=== PATIENT | female | born 1960 | race Caucasian/White ===

== ENCOUNTER 2018-02-21 09:21 | Inpatient (IN) | payer BC ==
[2018-02-21] MEDS ORDERED: METOPROLOL TAR 50 MG TAB ONE ×2 (09:56→11:23)
[2018-02-21] MEDS ORDERED: ASPIRIN 81 MG CHEWABLE TABLET ONE (09:56)
[2018-02-21] MEDS ORDERED: METOPROLOL TARTRATE 5 MG/5 ML INJ IV ONE (09:56)
[2018-02-21 10:14] LABS: Absolute Lymphocytes (CBC) 3.1 K/uL (0.7-4.9); Absolute Monocytes 0.7 K/uL (0.1-1.3); Basophils % 0.7 % (0-1.3); Eosinophils % 1.5 % (0-4.4); Hematocrit 40.9 % (36.0-45.0); Lymphocytes % 39.1 % (15.3-44.8); MCH 23.8 pg (27.0-35.0); MCV 75.6 fL (80-100); MPV 9.5 fL (7.6-11.3); Monocytes % 8.3 % (3.3-12.3); Protime INR 0.97; RBC Red Blood Cell Count 5.42 M/uL (3.86-4.86)
[2018-02-21 10:37] LABS: Potassium 3.9 mmol/L (3.5-5.1); Thyroid Stimulating Hormone 0.373 uIU/mL (0.360-3.740); Troponin (Emerg Dept Use Only) 0.06 ng/mL (0.0-0.045)
--- NOTE | 2018-02-21 11:17 | RAD REPORT ---
EXAM DESCRIPTION: RAD - Chest Single View - 02/21/2018 10:35 am CLINICAL HISTORY: PALPITATIONS Chest pain. COMPARISON: No comparisons FINDINGS: Portable technique limits examination quality. The lungs are grossly clear. The heart is normal in size. No displaced fractures. IMPRESSION: No acute intrathoracic process suspected.
[2018-02-21] MEDS ORDERED: ENOXAPARIN 100 MG/ML SYR SQ ONE (11:19)
--- NOTE | 2018-02-21 11:27 | ER ---
Nurse's Notes [facility] Name: Ana Farmer Age: 57 yrs Sex: Female : 1960 Arrival Date: 02/21/2018 Time: 09:24 Bed 14 Private MD: Jazmin Holland K Diagnosis: Unspecified atrial fibrillation Presentation: 02/21 09:33 Presenting complaint: Patient states: palpitations, feeling dizzy, lightheaded ch intermittently, started yesterday morning when i woke up. Transition of care: patient was not received from another setting of care. Onset of symptoms was February 20, 2018 at 08:00. 09:33 Method Of Arrival: Wheelchair 09:49 Risk Assessment: Do you want to hurt yourself or someone else? Patient reports no ch desire to harm self or others. Initial Sepsis Screen: Does the patient meet any 2 criteria? No. Patient's initial sepsis screen is negative. Does the patient have a suspected source of infection? No. Patient's initial sepsis screen is negative. Care prior to arrival: None. 09:49 Acuity: ELENITA 2 Triage Assessment: 09:51 General: Appears in no apparent distress. uncomfortable, Behavior is calm, cooperative, ch appropriate for age. Pain: Denies pain. Neuro: No deficits noted. Cardiovascular: Heart tones S1 Capillary refill < 3 seconds in bilateral fingers toes Clubbing of nail beds is absent Patient's skin is warm and dry. Pulses are all present. Edema is absent. Rhythm is atrial fibrillation with rapid ventricular response Chest pain is denied. Respiratory: Airway is patent Respiratory effort is even, unlabored, Breath sounds are clear bilaterally. Historical: - Allergies: 09:51 No Known Allergies; ch - Home Meds: 09:51 levothyroxine 50 mcg tab 1 tab once daily [Active]; omeprazole 40 mg Oral cpDR 1 cap ch once daily [Active]; - PMHx: 09:51 Hypothyroidism; GERD; svt- in the 1989; ch - PSHx: 09:51 None; ch - Immunization history:: Adult Immunizations up to date, Adult Immunizations. - Social history:: Smoking status: Patient/guardian denies using tobacco, Patient/guardian denies using alcohol, street drugs. - Family history:: not pertinent. - Ebola Screening: : Patient negative for fever greater than or equal to 101.5 degrees Fahrenheit, and additional compatible Ebola Virus Disease symptoms Patient denies exposure to infectious person Patient denies travel to an Ebola-affected area in the 21 days before illness onset No symptoms or risks identified at this time. - Hospitalizations: : No recent hospitalization is reported. Screenin:13 Abuse screen: Denies threats or abuse. Denies injuries from another. Nutritional ch screening: No deficits noted. Tuberculosis screening: No symptoms or risk factors identified. Fall Risk None identified. Assessment: 10:50 Reassessment: Patient appears in no apparent distress at this time. Patient and/or ch family updated on plan of care and expected duration. Pain level reassessed. Patient is alert, oriented x 3, equal unlabored respirations, skin warm/dry/pink. Patient denies pain at this time. Patient states feeling better. 11:25 Reassessment: Patient appears in no apparent distress at this time. No changes from previously documented assessment. Patient and/or family updated on plan of care and expected duration. Pain level reassessed. Patient is alert, oriented x 3, equal unlabored respirations, skin warm/dry/pink. pt heart rate between 90's and 130's. denies feeling light headed. erp notified. no new orders. awaiting to see po metoprolol effectivness. 12:25 Reassessment: Patient appears in no apparent distress at this time. Patient and/or ch family updated on plan of care and expected duration. Pain level reassessed. Patient is alert, oriented x 3, equal unlabored respirations, skin warm/dry/pink. pt denies dizzyness or lighheadedness. states she is feeling better. 13:54 Reassessment: Patient appears in no apparent distress at this time. Patient and/or ch family updated on plan of care and expected duration. Pain level reassessed. Patient is alert, oriented x 3, equal unlabored respirations, skin warm/dry/pink. Patient denies pain at this time. Patient states feeling better. Patient states symptoms have improved. 14:07 Reassessment: Patient appears in no apparent distress at this time. Patient and/or ch family updated on plan of care and expected duration. Pain level reassessed. Patient is alert, oriented x 3, equal unlabored respirations, skin warm/dry/pink. I attempt to call report for the second time, will try again in 15 min. Patient denies pain at this time. Vital Signs: 09:40 BP 109 / 75; Pulse 126; Resp 18; Temp 97.9; Pulse Ox 99% on R/A; Weight 99.79 kg; ch Height 5 ft. 8 in. (172.72 cm); Pain 0/10; 09:54 BP 121 / 85; Pulse 108; Resp 14; Pulse Ox 99% on R/A; ch 09:59 BP 123 / 59; Pulse 85; Resp 14; Temp 97.8; Pulse Ox 99% on R/A; ch 10:04 BP 105 / 68; Pulse 94; Resp 16; Pulse Ox 99% on R/A; Pain 0/10; ch 10:50 BP 114 / 73; Pulse 125; Resp 16; Pulse Ox 98% on R/A; Pain 0/10; ch 11:25 BP 112 / 82; Pulse 125; Resp 12; Pulse Ox 98% on R/A; Pain 0/10; ch 12:40 BP 100 / 56; Pulse 102; Pulse Ox 99% on R/A; ch 13:54 BP 92 / 71; Pulse 92; Resp 14; Temp 98.5; Pulse Ox 99% on R/A; Pain 0/10; ch 14:17 BP 107 / 77; Pulse 99; Resp 16; Temp 98.4; Pulse Ox 99% on R/A; Pain 0/10; ch 09:40 Body Mass Index 33.45 (99.79 kg, 172.72 cm) ch 13:54 pt is still A fib, from 80's to 110's ch ED Course: 09:24 Patient arrived in ED. mr 09:25 Jazmin Holland MD is Private Physician. mr 09:32 Scarlett Maier, NORMA is Primary Nurse. 09:36 Darell Thomas MD is Attending Physician. rn 09:40 Arm band placed on left wrist. Patient placed in an exam room, on a stretcher, on school lunch monitor, on pulse oximetry. EKG completed in triage. Results shown to MD. 09:45 Patient has correct armband on for positive identification. Placed in gown. Bed in low position. Call light in reach. Side rails up X 1. Adult w/ patient. gambling monitor on. Pulse ox on. NIBP on. 09:45 Warm blanket given. ch 09:49 EKG done, by gastrointestinal technician. reviewed by Darell Thomas MD. at1 09:50 Triage completed. ch 09:50 Inserted saline lock: 18 gauge in left antecubital area, using aseptic technique. Blood ch collected. 10:31 X-ray completed. Portable x-ray completed in exam room. Patient tolerated procedure jb2 well. 10:37 XRAY Chest (1 view) In Process Unspecified. EDMS 10:45 EKG done, by gastrointestinal technician. reviewed by Darell Thomas MD Repeat EKG. at1 11:25 Shanel Dickens MD is Hospitalizing Provider. rn 14:01 Urine collected: clean catch specimen, clear. [facility] 14:18 No provider procedures requiring assistance completed. Patient admitted, IV remains in place. Administered Medications: 09:50 Drug: Metoprolol 5 mg Route: IVP; Site: left antecubital; ch 09:53 Drug: Aspirin Chewable Tablet 324 mg Route: PO; ch 10:51 Follow up: Response: No adverse reaction ch 09:55 Drug: Metoprolol 5 mg Route: IVP; Site: left antecubital; ch 10:05 Drug: Metoprolol 5 mg Route: IVP; Site: left antecubital; ch 10:51 Follow up: Response: No adverse reaction; Other; cardiac rate is reduced some, pt is ch still a fib 10:16 Drug: Metoprolol TARTRATE (Lopressor) 50 mg Route: PO; ch 10:51 Follow up: Response: No adverse reaction ch 11:10 Drug: Lovenox 100 mg Route: Sub-Q; Site: right upper abdomen; ch 11:19 Follow up: Response: No adverse reaction; Marked relief of symptoms ch 11:19 Drug: Metoprolol TARTRATE (Lopressor) 50 mg Route: PO; ch 14:15 Follow up: Response: No adverse reaction; Marked relief of symptoms Outcome: 11:26 Decision to Hospitalize by Provider. rn 14:18 Admitted to Tele accompanied by [facility], via wheelchair, room 211, Report called to Ele 14:18 Condition: stable 14:18 Instructed on the need for admit. 14:25 Patient left the ED. Signatures: Dispatcher [employer] Scarlett Wong RN RN ch Rivera, Mary mr Buechter, Jesse jb2 Darell Thomas MD MD rn Faviola Kearney, customer experience retail clerk [facility]1 Jazmin Velasquez [facility]
--- NOTE | 2018-02-21 11:27 | EDPHYS ---
Physician Documentation [facility] Name: Ana Farmer Age: 57 yrs Sex: Female : 1960 Arrival Date: 02/21/2018 Time: 09:24 Bed 14 Private MD: Jazmin Holland K ED Physician Darell Thomas HPI: 02/21 09:45 This 57 yrs old Female presents to ER via Unassigned with complaints of rn Palpitations. 09:45 The patient presents with a history of heart racing. Context: The symptoms occur at rn rest. Onset: The symptoms/episode began/occurred yesterday. Duration: The patient or guardian reports multiple episodes. Modifying factors: The symptoms are aggravated by nothing. The symptoms are alleviated by nothing. Severity of symptoms: At their worst the symptoms were mild in the emergency department the symptoms are unchanged. The patient has not experienced similar symptoms in the past. Reports palpitations, began yesterday AM, seen today by PCP, told to come here for evaluation, has had SVT in past, only takes thyroid meds, has decreased synthroid recently, no drug use. . Historical: - Allergies: 09:51 No Known Allergies; ch - Home Meds: 09:51 levothyroxine 50 mcg tab 1 tab once daily [Active]; omeprazole 40 mg Oral cpDR 1 cap ch once daily [Active]; - PMHx: 09:51 Hypothyroidism; GERD; svt- in the 1989; ch - PSHx: 09:51 None; ch - Immunization history:: Adult Immunizations up to date, Adult Immunizations. - Social history:: Smoking status: Patient/guardian denies using tobacco, Patient/guardian denies using alcohol, street drugs. - Family history:: not pertinent. - Ebola Screening: : Patient negative for fever greater than or equal to 101.5 degrees Fahrenheit, and additional compatible Ebola Virus Disease symptoms Patient denies exposure to infectious person Patient denies travel to an Ebola-affected area in the 21 days before illness onset No symptoms or risks identified at this time. - Hospitalizations: : No recent hospitalization is reported. ROS: 09:45 Constitutional: Negative for fever, chills, and weight loss, Eyes: Negative for injury, rn pain, redness, and discharge, Neck: Negative for injury, pain, and swelling, Cardiovascular: Negative for chest pain, and edema, Respiratory: Negative for shortness of breath, cough, wheezing, and pleuritic chest pain, Abdomen/GI: Negative for abdominal pain, nausea, vomiting, diarrhea, and constipation, MS/Extremity: Negative for injury and deformity, Skin: Negative for injury, rash, and discoloration, Neuro: Negative for headache, weakness, numbness, tingling, and seizure. Exam: 09:45 Constitutional: This is a well developed, well nourished patient who is awake, alert, rn and in no acute distress. Head/Face: Normocephalic, atraumatic. ENT: MMM Cardiovascular: tachycardic, irregular, no murmur Respiratory: clear to auscultation bilaterally Skin: Warm, dry, no evidence of cellulitis. MS/ Extremity: Pulses equal, no cyanosis. Equal circumference. Neuro: Awake and alert, GCS 15, oriented to person, place, time, and situation. Cranial nerves II-XII grossly intact. Motor strength 5/5 in all extremities. Sensory grossly intact. Cerebellar exam normal. 10:05 ECG was reviewed by the Attending Physician. rn Vital Signs: 09:40 BP 109 / 75; Pulse 126; Resp 18; Temp 97.9; Pulse Ox 99% on R/A; Weight 99.79 kg; ch Height 5 ft. 8 in. (172.72 cm); Pain 0/10; 09:54 BP 121 / 85; Pulse 108; Resp 14; Pulse Ox 99% on R/A; ch 09:59 BP 123 / 59; Pulse 85; Resp 14; Temp 97.8; Pulse Ox 99% on R/A; ch 10:04 BP 105 / 68; Pulse 94; Resp 16; Pulse Ox 99% on R/A; Pain 0/10; ch 10:50 BP 114 / 73; Pulse 125; Resp 16; Pulse Ox 98% on R/A; Pain 0/10; ch 11:25 BP 112 / 82; Pulse 125; Resp 12; Pulse Ox 98% on R/A; Pain 0/10; ch 12:40 BP 100 / 56; Pulse 102; Pulse Ox 99% on R/A; ch 13:54 BP 92 / 71; Pulse 92; Resp 14; Temp 98.5; Pulse Ox 99% on R/A; Pain 0/10; ch 14:17 BP 107 / 77; Pulse 99; Resp 16; Temp 98.4; Pulse Ox 99% on R/A; Pain 0/10; ch 09:40 Body Mass Index 33.45 (99.79 kg, 172.72 cm) ch 13:54 pt is still A fib, from 80's to 110's ch MDM: 09:36 Patient medically screened. rn 11:24 Data reviewed: vital signs, nurses notes, lab test result(s), EKG, radiologic studies, rn plain films, and as a result, I will admit patient. Counseling: I had a detailed discussion with the patient and/or guardian regarding: the historical points, exam findings, and any diagnostic results supporting the discharge/admit diagnosis, lab results, radiology results, the need for further work-up and treatment in the hospital. Response to treatment: the patient's symptoms have mildly improved after treatment, and as a result, I will admit patient. Admission orders: after a detailed discussion of the patient's condition and case, the admit orders are written by me. ED course: Pt with new onset Afib with RVR, elevated trop and BNP, otherwise stable, admitted to Dr. Dickens.. 02/21 09:42 Order name: Basic Metabolic Panel; Complete Time: 10:37 rn 02/21 09:42 Order name: CBC with Diff; Complete Time: 10:37 rn 02/21 09:42 Order name: NT PRO-BNP; Complete Time: 10:37 rn 02/21 09:42 Order name: PT-INR; Complete Time: 10:37 rn 02/21 09:42 Order name: Troponin (emerg Dept Use Only); Complete Time: 10:37 rn 02/21 09:42 Order name: TSH; Complete Time: 10:37 rn 02/21 09:42 Order name: XRAY Chest (1 view); Complete Time: 11:19 rn 02/21 09:42 Order name: T4 Free; Complete Time: 10:37 rn 02/21 11:25 Order name: Echo with Doppler EDMS 02/21 14:15 Order name: Urine Dipstick--Ancillary (enter results) eb 02/21 09:42 Order name: EKG; Complete Time: 09:43 rn 02/21 09:42 Order name: Cardiac monitoring; Complete Time: 10:52 rn 02/21 09:42 Order name: EKG - Nurse/Tech; Complete Time: 10:52 rn 02/21 09:42 Order name: IV Saline Lock; Complete Time: 10:52 rn 02/21 09:42 Order name: Labs collected and sent; Complete Time: 10:52 rn 02/21 09:42 Order name: O2 Per Protocol; Complete Time: 10:52 rn 02/21 09:42 Order name: O2 Sat Monitoring; Complete Time: 10:52 rn EC:05 Rate is 132 beats/min. Rhythm is irregularly irregular. QRS [place] is Normal. QRS rn interval is normal. QT interval is normal. No Q waves. T waves are Normal. No ST changes noted. Clinical impression: Atrial Fibrillation. Interpreted by me. Administered Medications: 09:50 Drug: Metoprolol 5 mg Route: IVP; Site: left antecubital; ch 09:53 Drug: Aspirin Chewable Tablet 324 mg Route: PO; ch 10:51 Follow up: Response: No adverse reaction ch 09:55 Drug: Metoprolol 5 mg Route: IVP; Site: left antecubital; ch 10:05 Drug: Metoprolol 5 mg Route: IVP; Site: left antecubital; ch 10:51 Follow up: Response: No adverse reaction; Other; cardiac rate is reduced some, pt is ch still a fib 10:16 Drug: Metoprolol TARTRATE (Lopressor) 50 mg Route: PO; ch 10:51 Follow up: Response: No adverse reaction ch 11:10 Drug: Lovenox 100 mg Route: Sub-Q; Site: right upper abdomen; ch 11:19 Follow up: Response: No adverse reaction; Marked relief of symptoms ch 11:19 Drug: Metoprolol TARTRATE (Lopressor) 50 mg Route: PO; ch 14:15 Follow up: Response: No adverse reaction; Marked relief of symptoms ch Disposition: 02/21/18 11:26 Hospitalization ordered by Shanel Dickens for Inpatient Admission. Preliminary diagnosis is Unspecified atrial fibrillation. - Bed requested for Telemetry/MedSurg (Inpatient). - Status is Inpatient Admission. ch - Condition is Stable. - Problem is new. - Symptoms have improved. UTI on Admission? No Signatures: Dispatcher [employer] EDScarlett Garcia RN RN ch Nieto, Roman, MD MD rn Botello, Elizabeth eb Corrections: (The following items were deleted from the chart) 12:23 11:26 Hospitalization Ordered by Shanel Dickens MD for Inpatient Admission. Preliminary eb diagnosis is Unspecified atrial fibrillation. Bed requested for Telemetry/MedSurg (Inpatient). Status is Inpatient Admission. Condition is Stable. Problem is new. Symptoms have improved. UTI on Admission? No. rn 14:25 12:23 02/21/2018 11:26 Hospitalization Ordered by Shanel Dickens MD for Inpatient ch Admission. Preliminary diagnosis is Unspecified atrial fibrillation. Bed requested for Telemetry/MedSurg (Inpatient). Status is Inpatient Admission. Condition is Stable. Problem is new. Symptoms have improved. UTI on Admission? No. eb
--- NOTE | 2018-02-21 12:34 | EKG ---
Test Date: 2018-02-21 Test Time: 09:42:12 Switch Maker: CHRISTOFER MEASUREMENT RESULTS: Intervals: Rate: 132 MO: QRSD: 88 QT: 298 QTc: 441 [place]: P: MO: QRS: 38 T: -25 INTERPRETIVE STATEMENTS: Atrial fibrillation with rapid ventricular response with premature ventricular or aberrantly conducted complexes ST & T wave abnormality, consider inferior ischemia or digitalis effect Abnormal ECG Compared to ECG 05/03/2007 23:23:56 Ventricular premature complex(es) now present ST (T wave) deviation now present Possible ischemia now present Sinus rhythm no longer present Left ventricular hypertrophy no longer present Electronically Signed On 02-21-18 12:32:41 LINER HELPER by Rell Huerta
--- NOTE | 2018-02-21 15:07 | P.HP ---
Certification for Inpatient Patient admitted to: Inpatient With expected LOS: >2 Midnights Patient will require the following post-hospital care: None Practitioner: I am a practitioner with admitting privileges, knowledge of patient current condition, hospital course, and medical plan of care. Services: Services provided to patient in accordance with Admission requirements found in Title 42 Section 412.3 of the Code of Federal Regulations Patient History Date of Service: 02/21/18 Primary Care Provider: Dr. Holland Reason for admission: Atrial fibrillation History of Present Illness: This is a 57-year-old female with significant past medical history of hyperthyroidism who presented to the ED complaining of having some irregular heart rate with started yesterday patient started having palpitations along with it and the she decided to go to her primary care doctors. This morning at her primary care doctor's office. She had an EKG done which was consistent with atrophic dash with RVR is thus her primary care doctor drove her to the hospital for further care. Patient stated that she just generally was not feeling well and decided to go to her PCP. Recently patient has seen her PCP where her thyroid medication dose was adjusted to a lower dose from her previous dose that she was taking. No other complaints to offer at this time. Denies having any chest pain shortness of breath nausea vomiting headaches or any other associated symptoms. In the ER patient was found to have atrial fibrillation and thus was admitted for new onset AFib with RVR Home Medications: Levothyroxine [Synthroid] 125 mg PO [id number] 02/21/18 Omeprazole [Prilosec] 40 mg PO DAILY 02/21/18 - Past Medical/Surgical History Has patient received pneumonia vaccine in the past: No -: Hypothyroidism Past Surgical History: Reviewed- Non-Contributory - Family History Family History: Reviewed- Non-Contributory - Social History Smoking Status: Never smoker Smoking therapy provided: No Patient receptive to therapy: No Alcohol use: No CD- Drugs: No Caffeine use: No Place of Residence: Home Review of Systems 10-point ROS is otherwise unremarkable Physical Examination - Vital Signs Temperature: 98.4 F Blood Pressure: 107/77 Pulse: 99 Respirations: 16 - Physical Exam General: Alert, In no apparent distress HEENT: Atraumatic, PERRLA, Mucous membr. moist/pink, EOMI, Sclerae nonicteric Neck: Supple, 2+ carotid pulse no bruit, No LAD, Without JVD or thyroid abnormality Respiratory: Clear to auscultation bilaterally, Normal air movement Cardiovascular: Normal S1 S2, Irregular heart rate/rhythm Gastrointestinal: Normal bowel sounds, No tenderness Musculoskeletal: No tenderness Integumentary: No rashes Neurological: Normal gait, Normal speech, Normal strength at 5/5 x4 extr, Normal tone, Normal affect Lymphatics: No axilla or inguinal lymphadenopathy - Studies Laboratory Data (last 24 hrs) 02/21/18 09:50: PT 11.5, INR 0.97 02/21/18 09:50: WBC 7.9, Hgb 12.9, Hct 40.9, Plt Count 366 02/21/18 09:50: Sodium 144, Potassium 3.9, BUN 23 H, Creatinine 1.10, Glucose 102 Assessment and Plan - Problems (Diagnosis) (1) Atrial fibrillation with RVR Current Visit: Yes Status: Acute Plan: AFib with RVR with a heart rate of 150s to 140s -currently beta-rosalinda x1 in the ER -Not on any anti coagulation at this time -will get cardiology consulted at this time -will get echocardiogram as well -will do Lovenox b.i.d. along with low-dose beta-rosalinda at this time (2) Hypothyroidism Current Visit: Yes Status: Chronic Plan: Restart home medication and Repeat TSH and T4 Qualifiers: Hypothyroidism type: acquired Qualified Code(s): E03.9 - Hypothyroidism, unspecified Discharge Plan: Home Plan to discharge in: 48 Hours - Advance Directives Does patient have a Living Will: No Does patient have a Durable POA for Healthcare: No - Code Status/Comfort Care Code Status Assessed: Yes Critical Care: No
[2018-02-21] MEDS ORDERED: ACETAMINOPHEN 500 MG TAB PO PRN (15:14)
[2018-02-21] MEDS ORDERED: ONDANSETRON 4 MG/2 ML VIAL IV PRN (15:14)
[2018-02-21] MEDS: NA CHLORIDE 0.9% 1,000 ML IV SCH (15:31)
[2018-02-21 15:37] LABS: Urine Blood NEGATIVE (NEG); Urine Glucose NEGATIVE (NEG); Urine Protein NEGATIVE (NEG)
--- NOTE | 2018-02-21 17:13 | ECHO ---
HEIGHT: 5 ft 7 in WEIGHT: 230 lb 2 oz DATE OF STUDY: 02/21/[address]: Shanel Dickens MD 2-DIMENSIONAL: YES M.MODE: YES DOPPLER: YES COLOR FLOW: YES TDS: PORTABLE: DEFINITY: BUBBLE STUDY: DIAGNOSIS: ATRIAL FIBRILLATION WITH RAPID VENTRICULAR RESPONSE. CARDIAC HISTORY: CATHERIZATION: NO SURGERY: NO PROSTHETIC VALVE: NO PACEMAKER: NO MEASUREMENTS (cm) DIASTOLIC (NORMALS) SYSTOLIC (NORMALS) IVSd 1.0 (0.6-1.2) LA Diam 3.1 (1.9-4.0) LVEF 61% LVIDd 3.2 (3.5-5.7) LVIDs 2.2 (2.0-3.5) %FS 32% LVPWd 1.0 (0.6-1.2) Ao Diam 2.6 (2.0-3.7) 2 DIMENSIONAL ASSESSMENT: RIGHT ATRIUM: NORMAL LEFT ATRIUM: NORMAL RIGHT VENTRICLE: NORMAL LEFT VENTRICLE: NORMAL TRICUSPID VALVE: NORMAL MITRAL VALVE: NORMAL PULMONIC VALVE: NORMAL AORTIC VALVE: NORMAL PERICARDIAL EFFUSION: NONE AORTIC ROOT: NORMAL LEFT VENTRICULAR WALL MOTION: NORMAL DOPPLER/COLOR FLOW: MILD MITRAL REGURGITATION. COMMENTS: NORMAL TWO DIMENSIONAL ECHOCARDIOGRAM. MILD MITRAL REGURGITATION. TECHNOLOGIST: JANETTE TUTTLE
[2018-02-21] MEDS: ENOXAPARIN 100 MG/ML SYR SQ SCH (20:32)
[2018-02-22] MEDS: NA CHLORIDE 0.9% 1,000 ML IV SCH ×2 (01:45→11:47)
[2018-02-22 05:42] LABS: Absolute Lymphocytes (CBC) 3.2 K/uL (0.7-4.9); Absolute Monocytes 0.5 K/uL (0.1-1.3); Absolute Neutrophil 2.7 K/uL (1.8-8.0); Basophils % 1.2 % (0-1.3); Eosinophils % 2.5 % (0-4.4); Hematocrit 37.5 % (36.0-45.0); Lymphocytes % 48.2 % (15.3-44.8); MCH 23.9 pg (27.0-35.0); MCV 75.8 fL (80-100); MPV 9.5 fL (7.6-11.3); Monocytes % 7.7 % (3.3-12.3); RBC Red Blood Cell Count 4.95 M/uL (3.86-4.86)
[2018-02-22] MEDS: LEVOTHYROXINE SOD 0.125 MG TAB PO SCH (05:57)
[2018-02-22] MEDS ORDERED: METOPROLOL TAR 25 MG TAB PO SCH (06:00)
--- NOTE | 2018-02-22 07:06 | EKG ---
Test Date: 2018-02-21 Test Time: 10:44:32 Pegger Dobby Looms: CHRISTOFER MEASUREMENT RESULTS: Intervals: Rate: 80 AR: 152 QRSD: 82 QT: 384 QTc: 442 [place]: P: AR: 152 QRS: 24 T: 13 INTERPRETIVE STATEMENTS: Sinus rhythm with premature supraventricular complexes Otherwise normal ECG Compared to ECG 02/21/2018 09:42:12 Atrial premature complex(es) now present Atrial fibrillation no longer present Ventricular premature complex(es) no longer present ST (T wave) deviation no longer present Possible ischemia no longer present Electronically Signed On 02-22-18 07:06:19 PUBLICATIONS EDITOR by Antwon Fisher
[2018-02-22] MEDS: PANTOPRAZOLE 40MG TABLET PO SCH (07:30)
[2018-02-22 07:43] LABS: Bilirubin Total 0.6 mg/dL (0.2-1.0); Potassium 4.6 mmol/L (3.5-5.1); Protein, Total 6.8 g/dL (6.4-8.2)
[2018-02-22] MEDS ORDERED: HOME MED 1 EA UNK (Omeprazole [Prilosec] 40 MG) PO SCH (09:00)
[2018-02-22] MEDS: ENOXAPARIN 100 MG/ML SYR SQ SCH (09:31)
[2018-02-22] MEDS ORDERED: SOTALOL HCL 80 MG TAB PO ONE (09:52)
--- NOTE | 2018-02-22 13:00 | EKG ---
Test Date: 2018-02-22 Test Time: 07:20:28 Extension Work Instructor: CHRISTOFER MEASUREMENT RESULTS: Intervals: Rate: 114 [place]: QRSD: 82 QT: 356 QTc: 490 [place]: P: [place]: QRS: 51 T: -3 INTERPRETIVE STATEMENTS: Atrial fibrillation with rapid ventricular response Abnormal ECG Compared to ECG 02/22/2018 07:20:04 No significant changes Electronically Signed On 02-22-18 12:59:35 LIFE TESTER OUTBOARD [employer]ORS by Antwon Fisher
--- NOTE | 2018-02-22 13:00 | EKG ---
Test Date: 2018-02-22 Test Time: 07:20:54 Environmental Service Aide: CHRISTOFER MEASUREMENT RESULTS: Intervals: Rate: 105 IN: 216 QRSD: 82 QT: 360 QTc: 475 [place]: P: 234 IN: 216 QRS: 51 T: 19 INTERPRETIVE STATEMENTS: Unusual P axis, possible ectopic atrial tachycardia with premature atrial complexes Abnormal ECG Compared to ECG 02/22/2018 07:20:28 Atrial fibrillation no longer present Electronically Signed On 02-22-18 12:59:32 POWER ELECTRONICS RESEARCH ENGINEER by Antwon Fisher
--- NOTE | 2018-02-22 13:01 | EKG ---
Test Date: 2018-02-22 Test Time: 07:20:04 [employer]: CHRISTOFER MEASUREMENT RESULTS: Intervals: Rate: 104 NC: 208 QRSD: 82 QT: 350 QTc: 460 [place]: P: 208 NC: 208 QRS: 53 T: 26 INTERPRETIVE STATEMENTS: Sinus rhythm with premature atrial complexes Abnormal ECG Compared to ECG 02/21/2018 10:44:32 Sinus rhythm no longer present Electronically Signed On 02-22-18 13:00:10 ORCHID SUPERINTENDENT by Antwon Fisher
--- NOTE | 2018-02-22 13:46 | CON ---
Chief Complaint: Palpitations. Reason For Consult: Atrial fibrillation. History Of Present Illness: Mrs. Farmer is 57. She thinks she has had some palpitations that are v chava brief over the last several years, never sought medical attention. She came to the hospital [facility] use her heart was racing a lot. She was found to be in AFib. She went into sinus rhythm when she vance d a dose of IV metoprolol. She spent most of the night in sinus rhythm, this morning is back in atri al fibrillation. The patient has never had myocardial infarction, stroke, or diabetes. No cardiac s urgeries. No stents or other vascular surgeries. Medications: She takes levothyroxine and omeprazole as her only home medications. Allergies: NO ALLERGIES. Social History: No tobacco use. No alcohol use. No recreational drug use. Physical Examination: VITAL SIGNS: Five feet and 7 inches, 230 pounds. HEENT: Normal. Lungs: Clear. Heart: Irregularly irregular. No significant murmur or gallop. Abdomen: Soft. Extremities: Trace edema. An echocardiogram reveals everything is normal. She was in sinus rhythm during the test. She actual ly had [id number] mitral regurgitation. Impression: The patient has paroxysmal atrial fibrillation. I want to keep her in the hospital to i nitiate therapy with Betapace and initiate therapy with Lovenox. We will see if she is in sinus rhyt tomorrow. If she can tolerate 3 doses of Betapace, she could be allowed to go home tomorrow. LEXI/CRISTO Voice ID: [id number] Report ID: [id number]
--- NOTE | 2018-02-22 15:03 | P.PN ---
Subjective Date of Service: 02/22/18 Primary Care Provider: Dr. Holland Chief Complaint: Atrial fibrillation Subjective: Tolerating diet, Ambulating, Improving, Working w/ PT, Doing well Review of Systems 10-point ROS is otherwise unremarkable Physical Examination - Vital Signs Temperature: 97.5 F Blood Pressure: 121/58 Pulse: 125 Respirations: 18 Pulse Ox (%): 97 - Physical Exam General: Alert, In no apparent distress HEENT: Atraumatic, PERRLA, EOMI Neck: Supple, JVD not distended Respiratory: Clear to auscultation bilaterally, Normal air movement Cardiovascular: Regular rate/rhythm, Normal S1 S2 Gastrointestinal: Normal bowel sounds, No tenderness Musculoskeletal: No tenderness Integumentary: No rashes Neurological: Normal speech, Normal tone, Normal affect Lymphatics: No axilla or inguinal lymphadenopathy - Studies Medications List Reviewed: Yes Assessment And Plan - Current Problems (Diagnosis) (1) Atrial fibrillation with RVR Onset Date: 02/22/18 Current Visit: Yes Status: Acute Plan: AFib with RVR with a heart rate of 150s to 140s -Cardiology consulted. Appreciate reccs -On betapace now and Xarelto for anticoagulation (2) Hypothyroidism Onset Date: 02/22/18 Current Visit: Yes Status: Chronic Plan: Restart home medication and Repeat TSH and T4 Qualifiers: Hypothyroidism type: acquired Qualified Code(s): E03.9 - Hypothyroidism, unspecified Discharge Plan: Home Plan to discharge in: 48 Hours - Code Status/Comfort Care Code Status Assessed: Yes Critical Care: No
[2018-02-22] MEDS: RIVAROXABAN 20 MG TABLET PO SCH (16:35)
[2018-02-22] MEDS: SOTALOL HCL 80 MG TAB PO SCH (17:10)
[2018-02-23] MEDS: SOTALOL HCL 80 MG TAB PO SCH ×2 (05:18→17:33)
[2018-02-23] MEDS: LEVOTHYROXINE SOD 0.125 MG TAB PO SCH (05:18)
[2018-02-23 06:10] LABS: Absolute Lymphocytes (CBC) 2.6 K/uL (0.7-4.9); Absolute Monocytes 0.5 K/uL (0.1-1.3); Absolute Neutrophil 2.7 K/uL (1.8-8.0); Basophils % 1.3 % (0-1.3); Eosinophils % 2.5 % (0-4.4); Hematocrit 37.4 % (36.0-45.0); Lymphocytes % 44.1 % (15.3-44.8); MCH 24.2 pg (27.0-35.0); MCV 75.1 fL (80-100); MPV 9.7 fL (7.6-11.3); Monocytes % 7.6 % (3.3-12.3); RBC Red Blood Cell Count 4.98 M/uL (3.86-4.86)
[2018-02-23 06:29] LABS: Albumin 3.2 g/dL (3.4-5.0); Bilirubin Total 0.7 mg/dL (0.2-1.0); Protein, Total 6.4 g/dL (6.4-8.2)
[2018-02-23] MEDS: PANTOPRAZOLE 40MG TABLET PO SCH (08:33)
--- NOTE | 2018-02-23 11:08 | P.PN ---
Subjective Date of Service: 02/23/18 Primary Care Provider: Dr. Holland Chief Complaint: Atrial fibrillation Subjective: Tolerating diet, Ambulating, Improving, Working w/ PT, Doing well Review of Systems 10-point ROS is otherwise unremarkable Physical Examination - Vital Signs Temperature: 98.6 F Blood Pressure: 122/67 Pulse: 99 Respirations: 18 Pulse Ox (%): 95 - Physical Exam General: Alert, In no apparent distress HEENT: Atraumatic, PERRLA, EOMI Neck: Supple, JVD not distended Respiratory: Clear to auscultation bilaterally, Normal air movement Cardiovascular: Regular rate/rhythm, Normal S1 S2 Gastrointestinal: Normal bowel sounds, No tenderness Musculoskeletal: No tenderness Integumentary: No rashes Neurological: Normal speech, Normal tone, Normal affect Lymphatics: No axilla or inguinal lymphadenopathy - Studies Medications List Reviewed: Yes Assessment And Plan - Current Problems (Diagnosis) (1) Atrial fibrillation with RVR Onset Date: 02/22/18 Current Visit: Yes Status: Acute Plan: AFib with RVR with a heart rate of 150s to 140s -Cardiology consulted. Appreciate reccs -On betapace now and Xarelto for anticoagulation (2) Hypothyroidism Onset Date: 02/22/18 Current Visit: Yes Status: Chronic Plan: Restart home medication and Repeat TSH and T4 Qualifiers: Hypothyroidism type: acquired Qualified Code(s): E03.9 - Hypothyroidism, unspecified Discharge Plan: Home Plan to discharge in: 48 Hours - Code Status/Comfort Care Code Status Assessed: Yes Critical Care: No
--- NOTE | 2018-02-23 14:12 | PN ---
A 57-year-old woman. She goes in and out of atrial fibrillation. She will have 10 or 15 sinus beats then be back in atrial fibrillation. She is tolerating the medicine otherwise, and I think by deborah corley, we can decide whether the Betapace is going to do. I would be unable to increase the dose becau se of her blood pressure being too low. So if we still have poor control of the atrial fibrillation, I will recommend we stop Betapace, give her a more traditional beta-rosalinda, perhaps add Multaq. Lexi key is on rivaroxaban and tolerating it, so she could be loaded on Multaq as an outpatient if Betapace fails. Thank you very much for your kind referral of Ms. Farmer, and I will follow her with you. LEXI/CRISTO Voice ID: [id number] Report ID: [id number]
[2018-02-23] MEDS: RIVAROXABAN 20 MG TABLET PO SCH (17:33)
[2018-02-24] MEDS: LEVOTHYROXINE SOD 0.125 MG TAB PO SCH (05:09)
[2018-02-24] MEDS: SOTALOL HCL 80 MG TAB PO SCH (05:10)
[2018-02-24 06:22] LABS: Absolute Lymphocytes (CBC) 2.4 K/uL (0.7-4.9); Absolute Monocytes 0.4 K/uL (0.1-1.3); Absolute Neutrophil 3.7 K/uL (1.8-8.0); Basophils % 1.2 % (0-1.3); Eosinophils % 2.1 % (0-4.4); Hematocrit 39.5 % (36.0-45.0); Lymphocytes % 35.1 % (15.3-44.8); MCV 75.4 fL (80-100); MPV 9.9 fL (7.6-11.3); Monocytes % 6.1 % (3.3-12.3); RBC Red Blood Cell Count 5.24 M/uL (3.86-4.86)
[2018-02-24 06:42] LABS: Albumin 3.2 g/dL (3.4-5.0); Bilirubin Total 0.7 mg/dL (0.2-1.0); Protein, Total 6.6 g/dL (6.4-8.2)
[2018-02-24] MEDS: PANTOPRAZOLE 40MG TABLET PO SCH (07:36)
--- NOTE | 2018-02-24 14:23 | P.DS ---
Admission Date: 02/21/18 Discharge Date: 02/24/18 Primary Care Provider: Dr. Holland Disposition: ROUTINE DISCHARGE Discharge Condition: GOOD Reason for Admission: Atrial fibrillation Consultations: Cardiology - Problems (1) Atrial fibrillation with RVR Onset Date: 02/22/18 Current Visit: Yes Status: Acute (2) Hypothyroidism Onset Date: 02/22/18 Current Visit: Yes Status: Chronic Qualifiers: Hypothyroidism type: acquired Qualified Code(s): E03.9 - Hypothyroidism, unspecified Brief History of Present Illness: This is a 57-year-old female with significant past medical history of hyperthyroidism who presented to the ED complaining of having some irregular heart rate with started yesterday patient started having palpitations along with it and the she decided to go to her primary care doctors. This morning at her primary care doctor's office. She had an EKG done which was consistent with atrophic dash with RVR is thus her primary care doctor drove her to the hospital for further care. Patient stated that she just generally was not feeling well and decided to go to her PCP. Recently patient has seen her PCP where her thyroid medication dose was adjusted to a lower dose from her previous dose that she was taking. No other complaints to offer at this time. Denies having any chest pain shortness of breath nausea vomiting headaches or any other associated symptoms. In the ER patient was found to have atrial fibrillation and thus was admitted for new onset AFib with RVR Hospital Course: Overall during the hospital stay patient remained stable. The patient was initially admitted to the hospital for palpitation was found to have atrial fibrillation with RVR with a heart rate of 140 stool 150s. Cardiology was consulted who recommended patient be started on Betapace and sore also. Patient was monitored for 48 hr for total 3 doses of Betapace. Patient had no adverse reaction and thus was discharged home under stable condition was asked to continue taking the Betapace and sore also. Patient did she rate control with Betapace however did still continue to be in AFib. Patient is to follow up with cardiology in about 1-2 days post discharge and once anticoagulated adequately patient will be considered for cardiac ablation. Vital Signs/Physical Exam: Temp Pulse Resp BP Pulse Ox 97.7 F 67 18 117/58 L 97 02/24/18 12:00 02/24/18 12:00 02/24/18 12:00 02/24/18 12:00 02/24/18 12:00 General: Alert, In no apparent distress HEENT: Atraumatic, PERRLA, EOMI Neck: Supple, JVD not distended Respiratory: Clear to auscultation bilaterally, Normal air movement Cardiovascular: Regular rate/rhythm, Normal S1 S2 Gastrointestinal: Normal bowel sounds, No tenderness Musculoskeletal: No tenderness Integumentary: No rashes Neurological: Normal speech, Normal tone, Normal affect Lymphatics: No axilla or inguinal lymphadenopathy Laboratory Data at Discharge: WBC 6.8 K/uL (4.3-10.9) 02/24/18 05:22 Hgb 12.6 g/dL (12.0-15.0) 02/24/18 05:22 Hct 39.5 % (36.0-45.0) 02/24/18 05:22 Plt Count 322 K/uL (152-406) 02/24/18 05:22 PT 11.5 SECONDS (9.5-12.5) 02/21/18 09:50 INR 0.97 02/21/18 09:50 Sodium 143 mmol/L (136-145) 02/24/18 05:22 Potassium 4.0 mmol/L (3.5-5.1) 02/24/18 05:22 BUN 14 mg/dL (7-18) 02/24/18 05:22 Creatinine 1.00 mg/dL (0.55-1.3) 02/24/18 05:22 Glucose 90 mg/dL (74-106) 02/24/18 05:22 Total Bilirubin 0.7 mg/dL (0.2-1.0) 02/24/18 05:22 AST 32 U/L (15-37) 02/24/18 05:22 ALT 35 U/L (12-78) 02/24/18 05:22 Alkaline Phosphatase 69 U/L (45-117) 02/24/18 05:22 Troponin I < 0.02 ng/mL (0.0-0.045) 02/22/18 07:00 Home Medications: Levothyroxine [Synthroid*] 125 mg PO [id number] 02/21/18 Omeprazole [Prilosec] 40 mg PO DAILY 02/21/18 Rivaroxaban [Xarelto] 20 mg PO DAILY #30 tablet 02/24/18 Sotalol HCl [Betapace*] 80 mg PO BID 6AM 6PM #60 tab 02/24/18 New Medications: Rivaroxaban [Xarelto] 20 mg PO DAILY #30 tablet Sotalol HCl [Betapace*] 80 mg PO BID 6AM 6PM #60 tab Patient Discharge Instructions: Please f.u with PCP and Dr Fisher in 1 to 2 week post discharge. New medication. Betapace. Xarelto Diet: Regular Activity: Ad oksana Followup: Antwon Fisher MD [ACTIVE - CAN ADMIT] - 1 Week (call to schedule an appointment) Jazmin Holland MD [Primary Care Provider] - 2-3 Days (call to schedule an appointment)
--- NOTE | 2018-02-24 16:37 | PN ---
Subjective: Mrs. Farmer is doing well, in sinus rhythm, feels well. She will be discharged, taking Betapace 80 b.i.d. and Xarelto 20 at supper time. She will have follow up with me in 2 to 4 weeks. She seems to understand the medications, their indications, has a good understanding of our instruct ions. LUCITA Voice ID: [id number] Report ID: [id number]
== END 2018-02-24 15:37 | disposition home or self-care (01) | DRG 310 ==
LOC: ER 09:21 → ERHOLD 11:33 → 2ND 14:19
PROVIDERS: ADMIT Family Medicine; ATTEND Family Medicine
DX: I48.91 Unspecified atrial fibrillation (principal); E03.9 Hypothyroidism, unspecified
CPT/HCPCS: 36415; 71045; 80048; 80053; 81003; 83880; 84439; 84443; 84484; 85025; 85610; 93005; 93306; 96372; 96374; 99285; J1650; J7030

== ENCOUNTER 2021-06-27 15:07 | Emergency (ER) | payer OTHER ==
--- NOTE | 2021-06-27 17:28 | RAD REPORT ---
EXAM DESCRIPTION: CT - Head Brain Wo Cont - 06/27/2021 5:21 pm CLINICAL HISTORY: HEADACHE Headache, drowsiness COMPARISON: <Comparisons> TECHNIQUE: All CT scans are performed using dose optimization technique as appropriate and may inclu de automated exposure control or mA/KV adjustment according to patient size. FINDINGS: No intracranial hemorrhage, hydrocephalus or extra-axial fluid collection.Mild frontal atr ophy.No areas of brain edema or evidence of midline shift. The paranasal sinuses and mastoids are clear. The calvarium is intact. IMPRESSION: No acute intracranial abnormality.
--- NOTE | 2021-06-27 17:37 | RAD REPORT ---
EXAM DESCRIPTION: CT - Head angio - 06/27/2021 5:22 pm CLINICAL HISTORY: HEADACHE Headache, drowsiness COMPARISON: No comparisons TECHNIQUE: CT angiography of the head was performed with MIPs. All CT scans are performed using dose optimization technique as appropriate and may include automated exposure control or mA/KV adjustment according to patient size. FINDINGS: There is a 5 mm focal collection of contrast involving the anterior pericallosal artery rojas spicious for an aneurysm. No additional areas of the aneurysm seen. No flow-limiting stenosis or vasc ular malformation identified. Antegrade flow is seen in the vertebral arteries. The vertebral arteries are codominant. The visualized dural venous sinuses are patent. IMPRESSION: 5 mm collection of contrast seen anterior pericallosal artery is present, likely an aneu rysm.
[2021-06-27] MEDS ORDERED: LIDOCAINE 1% MPF 30 ML VIAL ONE (17:53)
[2021-06-27] MEDS ORDERED: NA CHLORIDE 0.9% 1,000 ML ONE (18:47)
[2021-06-27 19:11] LABS: CSF Glucose 61 mg/dL (40-70)
[2021-06-27 19:46] LABS: Appearance CLEAR (CLEAR); Body Fluid Source CSF; Color of fluid Colorless (COLORLESS)
[2021-06-27 19:47] LABS: Body Fluid WBC 0 /mm^3
[2021-06-27 19:52] LABS: Body Fluid Source CSF; Color of fluid Colorless (COLORLESS); Fluid Total Volume 4 ml
[2021-06-27 19:53] LABS: Appearance CLEAR (CLEAR); Body Fluid WBC 0 /mm^3
--- NOTE | 2021-06-27 20:32 | EDPHYS ---
Physician Documentation [facility] Name: Ana Farmer Age: 60 yrs Sex: Female : 1960 Arrival Date: 06/27/2021 Time: 15:10 Bed 12 Private MD: ED Physician Camilo Beatty HPI: 06/27 15:26 This 60 yrs old Female presents to ER via Ambulatory with complaints of Headache. jm 15:26 The patient complains of pain to the left side of the back of head and right side of jmm the back of head. Onset: The symptoms/episode began/occurred acutely, 18 hour(s) ago. Associated signs and symptoms: Pertinent negatives: there are no associated signs or symptoms. Headache History: The patient has had previous headaches and this one is similar to previous episodes. The symptoms are alleviated by nothing. the symptoms are aggravated by nothing. This is a 60-year-old female with history of hypothyroidism, SVT that presents to the emergency department with a resolved headache. Headache is described as an ice pick to the back of her head. Patient states she has had similar headaches for the past 20 years. Normally last for a few seconds but this episode lasted for approximately 45 minutes according to the patient. Denies vomiting, light sensitivity, neck stiffness. Denies fever. Patient was advised to see neurologist by PCP or otherwise go to the ER. Patient currently has no headache. Historical: - Allergies: 15:17 No Known Allergies; aa5 - Home Meds: 20:33 levothyroxine 125 mcg oral cap [Active]; omeprazole 40 mg Oral cpDR 1 cap once daily ld1 [Active]; sotalol 80 mg Oral tab 1 tab 2 times per day [Active]; Xarelto 20 mg oral tab 1 tab once daily [Active]; zolpidem 10 mg Oral tab 1 tab once daily [Active]; - PMHx: 15:17 GERD; Hypothyroidism; svt- in the A-fib; aa5 20:33 Insomnia; ld1 - Immunization history:: Flu vaccine is not up to date. - Social history:: Smoking status: Patient denies any tobacco usage or history of. ROS: 15:26 Constitutional: Negative for fever, chills, and weight loss, Cardiovascular: Negative [facility] for chest pain, palpitations, and edema, Respiratory: Negative for shortness of breath, cough, wheezing, and pleuritic chest pain. 15:26 Neuro: Positive for headache. 15:26 All other systems are negative. Exam: 15:26 Head/Face: atraumatic. Eyes: EOMI, no conjunctival erythema appreciated ENT: Moist jmm Mucus Membranes Neck: Trachea midline, Supple Chest/axilla: Normal chest wall appearance and motion. Cardiovascular: Regular rate and rhythm. No edema appreciated Respiratory: Normal respirations, no respiratory distress appreciated Abdomen/GI: Non distended, soft Back: Normal ROM Skin: General appearance color normal MS/ Extremity: Moves all extremities, no obvious deformities appreciated, no edema noted to the lower extremities Neuro: Awake and alert Psych: Behavior is normal, Mood is normal, Patient is cooperative and pleasant 15:26 Constitutional: The patient appears in no acute distress, alert, awake. Vital Signs: 15:18 BP 152 / 87; Pulse 79; Resp 18 S; Temp 98.8(TE); Pulse Ox 96% on R/A; Weight 104.33 kg aa5 (R); Height 5 ft. 6 in. (167.64 cm) (R); 15:30 BP 152 / 77; Pulse 82; Resp 18; Pulse Ox 99% on R/A; ld1 16:30 BP 151 / 73; Pulse 80; Resp 17; Pulse Ox 99% on R/A; ld1 18:09 BP 148 / 65; Pulse 78; Resp 18; Pulse Ox 99% on R/A; ld1 20:02 BP 139 / 72; Pulse 79; Resp 18; Pulse Ox 97% on R/A; Pain 0/10; ld1 20:32 BP 135 / 72; Pulse 81; Resp 18; Pulse Ox 100% on R/A; Pain 0/10; ld1 20:55 BP 128 / 76; Pulse 77; Resp 18; Pulse Ox 100% on R/A; ld1 21:14 BP 131 / 60; Pulse 72; Resp 18; Pulse Ox 100% on R/A; ld1 22:52 BP 131 / 57; Pulse 90; Resp 18; Temp 98.7(O); Pulse Ox 98% on R/A; lp1 15:18 Body Mass Index 37.12 (104.33 kg, 167.64 cm) aa5 Procedures: 18:28 Lumbar Puncture: Patient placed in left lateral decubitus position. Patient placed in [facility] sitting position. clear fluid. Puncture site dressed with band aid, Patient tolerated well. MDM: 15:26 Patient medically screened. [facility] 17:35 Data reviewed: vital signs, nurses notes. [facility] 18:28 Transition of care: After a detail discussion of the patient's case, care is [facility] transferred to Yan Wen NP. 20:27 Physician consultation: Cody Glass MD Blood pressure management with labetalol IV pm1 and PO. Transfer patient for neuro evaluation and treatment. 20:28 Counseling: I had a detailed discussion with the patient and/or guardian regarding: the pm1 historical points, exam findings, and any diagnostic results supporting the discharge/admit diagnosis, lab results, radiology results, the need to transfer to another facility, for higher level of care, [facility] does not immediately have the required specialist. 21:06 Physician consultation: MD Waterman regarding consult, patient's condition, and will see pm1 patient. 21:29 Physician consultation: MD Jansen regarding regarding transfer, patient's condition, pm1 and will see patient. 06/27 17:45 Order name: Csf Culture [facility] 06/27 17:45 Order name: Fluid Cell Count,Body; Complete Time: 19:54 [facility] 06/27 17:45 Order name: Spinal Fluid Profile; Complete Time: 19:54 [facility] 06/27 20:27 Order name: CBC with Diff; Complete Time: 22:07 pm1 06/27 20:27 Order name: PT-INR; Complete Time: 22:07 pm1 06/27 15:27 Order name: CT Head Brain wo Cont; Complete Time: 17:31 [facility] 06/27 15:27 Order name: CT Head Angio; Complete Time: 17:39 [facility] 06/27 20:27 Order name: CMP; Complete Time: 22:07 pm1 06/27 20:57 Order name: COVID-19/FLU A+B; Complete Time: 22:35 [facility] 06/27 15:28 Order name: Saline Lock; Complete Time: 15:35 [facility] 06/27 17:45 Order name: LP Consents; Complete Time: 18:01 [facility] 06/27 17:45 Order name: LP Setup; Complete Time: 18:01 [facility] 06/27 20:43 Order name: EKG; Complete Time: 20:44 pm1 06/27 20:43 Order name: EKG - Nurse/Tech; Complete Time: 21:00 pm1 Administered Medications: 18:00 Drug: Lidocaine (1 %) 20 ml {Note: Administered by PA. Don} Volume: 20 ml; ld1 Route: Infiltration; 18:47 Drug: NS 0.9% 1000 ml Route: IV; Rate: 1000 ml; Site: left antecubital; ld1 20:45 Drug: Labetalol 10 mg Route: IVP; Site: left antecubital; ld1 22:52 Drug: Labetalol 100 mg Route: PO; lp1 23:45 Follow up: Response: No adverse reaction lp1 Disposition: 19:09 Co-signature as Attending Physician, Camilo Beatty MD I agree with the assessment and kdr plan of care. Disposition Summary: 06/27/21 20:32 Transfer Ordered Transfer Location: [facility] pm1 Reason: Higher level of care pm1 Condition: Stable pm1 Problem: new pm1 Symptoms: have improved pm1 Accepting Physician: (06/27/21 23:44) lp1 Diagnosis - Anterior pericallosal artery aneurysm pm1 Forms: - Medication Reconciliation Form pm1 - SBAR form pm1 Signatures: Dispatcher [employer] EDMS Camilo Beatty MD MD kdr Mickail, Joel, PA PA jmm Calderon, Audri, NORMA RN aa5 Jo Ann Sepulveda, RN RN lp1 Yan Wen, MATHEMATICS LECTURER MATHEMATICS LECTURER pm1 Rima Patterson, RN RN ld1 Corrections: (The following items were deleted from the chart) 20:59 20:57 COVID-19/FLU A+B+MOL.LAB.BRZ ordered. EDMS EDMS 23:44 20:32 MD pm1 lp1
--- NOTE | 2021-06-27 20:32 | ER ---
Nurse's Notes [facility] Name: Ana Farmer Age: 60 yrs Sex: Female : 1960 Arrival Date: 06/27/2021 Time: 15:10 Bed 12 Private MD: Diagnosis: Anterior pericallosal artery aneurysm Presentation: 06/27 15:18 Chief complaint: Patient states: "I had a headache that lasted about 18 hours and I aa5 called my doctor and they advised me to come in and get checked out". Pt reports headache resolved today around 0900. Denies any other symptoms. Coronavirus screen: At this time, the client does not indicate any symptoms associated with coronavirus-19. Ebola Screen: No symptoms or risks identified at this time. Initial Sepsis Screen: Does the patient meet any 2 criteria? No. Patient's initial sepsis screen is negative. Does the patient have a suspected source of infection? No. Patient's initial sepsis screen is negative. Risk Assessment: Do you want to hurt yourself or someone else? Patient reports no desire to harm self or others. Onset of symptoms was June 2021. 15:18 Acuity: ELENITA 3 aa5 15:18 Method Of Arrival: Ambulatory aa5 Historical: - Allergies: 15:17 No Known Allergies; aa5 - Home Meds: 20:33 levothyroxine 125 mcg oral cap [Active]; omeprazole 40 mg Oral cpDR 1 cap once daily ld1 [Active]; sotalol 80 mg Oral tab 1 tab 2 times per day [Active]; Xarelto 20 mg oral tab 1 tab once daily [Active]; zolpidem 10 mg Oral tab 1 tab once daily [Active]; - PMHx: 15:17 GERD; Hypothyroidism; svt- in the 1989; A-fib; aa5 20:33 Insomnia; ld1 - Immunization history:: Flu vaccine is not up to date. - Social history:: Smoking status: Patient denies any tobacco usage or history of. Screenin:45 Abuse screen: Denies threats or abuse. Denies injuries from another. Nutritional ld1 screening: No deficits noted. Tuberculosis screening: No symptoms or risk factors identified. Fall Risk None identified. Assessment: 15:30 General: Appears in no apparent distress. comfortable, Behavior is calm, cooperative, ld1 appropriate for age. Pain: Complains of pain in face Pain does not radiate. Pain currently is 9 out of 10 on a pain scale. Quality of pain is described as throbbing, Pain began 1 day ago. Is continuous. 15:30 Neuro: Level of Consciousness is awake, alert, obeys commands, Oriented to person, ld1 place, time, situation. Cardiovascular: Capillary refill < 3 seconds Patient's skin is warm and dry. Respiratory: Airway is patent Respiratory effort is even, unlabored, Respiratory pattern is regular, symmetrical. GI: Abdomen is round non-distended. : No signs and/or symptoms were reported regarding the genitourinary system. EENT: No signs and/or symptoms were reported regarding the EENT system. Derm: No signs and/or symptoms reported regarding the dermatologic system. Musculoskeletal: No signs and/or symptoms reported regarding the musculoskeletal system. 16:45 Reassessment: Patient appears in no apparent distress at this time. No changes from ld1 previously documented assessment. Patient and/or family updated on plan of care and expected duration. Pain level reassessed. Patient is alert, oriented x 3, equal unlabored respirations, skin warm/dry/pink. 18:19 Reassessment: ERP at bedside performing lumbar puncture. ld1 20:02 Reassessment: Patient appears in no apparent distress at this time. No changes from ld1 previously documented assessment. Patient and/or family updated on plan of care and expected duration. Pain level reassessed. Patient is alert, oriented x 3, equal unlabored respirations, skin warm/dry/pink. 22:52 Reassessment: Patient appears in no apparent distress at this time. Patient is alert, lp1 oriented x 3, equal unlabored respirations, skin warm/dry/pink. Patient aware of pending transfer; at bedside. 23:35 Reassessment: EMS at bedside for transfer. lp1 Vital Signs: 15:18 BP 152 / 87; Pulse 79; Resp 18 S; Temp 98.8(TE); Pulse Ox 96% on R/A; Weight 104.33 kg aa5 (R); Height 5 ft. 6 in. (167.64 cm) (R); 15:30 BP 152 / 77; Pulse 82; Resp 18; Pulse Ox 99% on R/A; ld1 16:30 BP 151 / 73; Pulse 80; Resp 17; Pulse Ox 99% on R/A; ld1 18:09 BP 148 / 65; Pulse 78; Resp 18; Pulse Ox 99% on R/A; ld1 20:02 BP 139 / 72; Pulse 79; Resp 18; Pulse Ox 97% on R/A; Pain 0/10; ld1 20:32 BP 135 / 72; Pulse 81; Resp 18; Pulse Ox 100% on R/A; Pain 0/10; ld1 20:55 BP 128 / 76; Pulse 77; Resp 18; Pulse Ox 100% on R/A; ld1 21:14 BP 131 / 60; Pulse 72; Resp 18; Pulse Ox 100% on R/A; ld1 22:52 BP 131 / 57; Pulse 90; Resp 18; Temp 98.7(O); Pulse Ox 98% on R/A; lp1 15:18 Body Mass Index 37.12 (104.33 kg, 167.64 cm) aa5 ED Course: 15:10 Patient arrived in ED. kz 15:17 Arm band placed on. aa5 15:20 Triage completed. aa5 15:20 Storm Troncoso PA is PHCP. [facility] 15:20 Camilo Beatty MD is Attending Physician. [facility] 15:35 Inserted saline lock: 20 gauge in left antecubital area, using aseptic technique. Blood ld1 collected. 15:45 Patient has correct armband on for positive identification. Placed in gown. Bed in low ld1 position. Call light in reach. Side rails up X2. residential monitor on. Pulse ox on. NIBP on. Door closed. Noise minimized. Warm blanket given. 15:45 Assist provider with lumbar puncture: Set up LP tray. Performed by Storm QUAN CSF ld1 is clear. Puncture site dressed with band aid, Procedure was successful. Patient tolerated well. 17:22 CT Head Brain wo Cont In Process Unspecified. EDMS 17:22 CT Head Angio In Process Unspecified. EDMS 18:18 Rima Patterson, NORMA is Primary Nurse. ld1 18:31 PHCP role handed off by Storm Troncoso PA pm1 18:31 Yan Wen NP is PHCP. pm1 18:31 Csf Culture Sent. ld1 18:31 Fluid Cell Count,Body Sent. ld1 18:31 Spinal Fluid Profile Sent. ld1 20:53 initiated a transfer with Toshia from [facility]. mw2 21:00 COVID-19/FLU A+B Sent. oe 21:08 connected Yan Wen KNURLING MACHINE OPERATOR with the Neurologist from [facility]. mw2 21:20 connected Yan Wen NP with Dr. Jansen from [facility]. mw2 22:15 Report received from NORMA Abarca. lp1 22:48 administrative approval given by Toshia Howard/ patient has been accepted to [address] to bed 1060/ Dr. Jansen accepted the patient in transfer/ report to be called to [phone]. 23:44 Patient transferred, IV remains in place. lp1 Administered Medications: 18:00 Drug: Lidocaine (1 %) 20 ml {Note: Administered by KADEEM Ochoa.} Volume: 20 ml; ld1 Route: Infiltration; 18:47 Drug: NS 0.9% 1000 ml Route: IV; Rate: 1000 ml; Site: left antecubital; ld1 20:45 Drug: Labetalol 10 mg Route: IVP; Site: left antecubital; ld1 22:52 Drug: Labetalol 100 mg Route: PO; lp1 23:45 Follow up: Response: No adverse reaction lp1 Outcome: 20:32 ER care complete, transfer ordered by MD. pm1 22:53 Condition: stable lp1 22:53 Instructed on the need for transfer. 23:44 Transferred by ground EMS to [facility], Transfer form completed. lp1 X-rays sent w/ patient. 23:44 Patient left the ED. lp1 Signatures: Dispatcher [employer] EDMS Storm Troncoso PA PA jmm Calderon, Audri RN RN tara5 Jo Ann Seuplveda, NORMA RN lp1 Yan Wen NP KNURLING MACHINE OPERATOR pm1 Samuel Hennessy MyKena mw2 Rima Patterson, RN RN ld1 Stefani Varela
[2021-06-27] MEDS ORDERED: LABETALOL HCL 100 MG/20 ML ONE (20:42)
[2021-06-27 21:29] LABS: Hematocrit 37.6 % (36.0-45.0); Lymphocytes % 35.4 % (15.3-44.8); MPV 8.7 fL (7.6-11.3); RBC Red Blood Cell Count 4.62 M/uL (3.86-4.86)
[2021-06-27 21:31] LABS: Protime INR 1.19
[2021-06-27 21:40] LABS: Albumin 3.2 g/dL (3.4-5.0); Bilirubin Total 0.4 mg/dL (0.2-1.0); Protein, Total 7.1 g/dL (6.4-8.2)
[2021-06-27 22:21] LABS: SARS-COV-2 RT PCR NEGATIVE (NEGATIVE)
[2021-06-27] MEDS ORDERED: LABETALOL HCL 100 MG TAB ONE (22:46)
[2021-06-28 01:00] VITALS: BP 131/57; TEMP 98.7; O2SAT 98
--- NOTE | 2021-06-28 08:44 | EKG ---
Test Date: 2021-06-27 Test Time: 20:47:36 Absorber Operator: JUJU MEASUREMENT RESULTS: Intervals: Rate: 70 W[place]: 148 QRSD: 82 QT: 422 QTc: 455 [place]: P: 51 W[place]: 148 QRS: 60 T: 26 INTERPRETIVE STATEMENTS: Normal sinus rhythm Normal ECG Compared to ECG 02/22/2018 07:20:54 No significant changes Electronically Signed On 06-28-21 08:42:12 CDT by Rell Huerta
== END 2021-06-27 23:44 | disposition short-term general hospital (02) ==
LOC: ER 15:07
DX: I67.1 Cerebral aneurysm, nonruptured (principal); I48.91 Unspecified atrial fibrillation; E03.9 Hypothyroidism, unspecified; K21.9 Gastro-esophageal reflux disease without esophagitis; Z79.01 Long term (current) use of anticoagulants; Z20.822 Contact with and (suspected) exposure to COVID-19
CPT/HCPCS: 93005; 87070; 85025; 36415; 89050 ×2; 84157; 85610; 82565; 82945; 80053; 0240U; 70450; 70496; 62270; 96374; 99285; Q9967; J7030